=== PATIENT | male | born 1985 | race Caucasian/White ===

== ENCOUNTER 2022-03-02 19:32 | Inpatient (IN) | payer MEDICAID, SELFPAY ==
[2022-03-02 19:35] VITALS: BP 106/60; PULSE 71; RESP 16; TEMP 36.6; O2SAT 100; BMI 22.2
[2022-03-02 19:37] VITALS: BP 106/60; PULSE 71; RESP 16; TEMP 36.6; O2SAT 100
--- NOTE | 2022-03-02 20:57 | EX.ED.SAOD ---
HPI History of Present Illness Chief Complaint: Substance Abuse Detail of Chief Complaint: History of drug abuse requesting inpatient detox. 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 Requesting detox. Last detox was about 6 months ago. He denies any recent illness. Prior similar symptoms: Yes Recent Illness/Hospitalization: No PFSH PFSH Medical History no medical history Home Medications mirtazapine 45 mg tablet 50 mg PO QHS 03/02/22 [History Last Taken Unknown] quetiapine 200 mg tablet (Seroquel) 200 mg PO QHS 03/02/22 [History Last Taken Unknown] Allergy/AdvReac Type Severity Reaction Status Date / Time No Known Allergies Allergy Verified 03/02/22 19:37 Surgical History no surgical history Social History Smoking Status: Current every day smoker tobacco type: cigarettes ROS ROS ED ROS Narrative Denies recent illness. Review of Systems ROS Unobtainable: Denies due to encephalopathy Constitutional Constitutional ED: Denies chills or fever(s) Eyes Eyes: Denies blurry vision ENT ENT ED: Denies ear pain Cardiovascular Cardiovascular: Denies chest pain Respiratory/Chest Respiratory/Chest: Denies cough or dyspnea Gastrointestinal Gastrointestinal: Denies abdominal pain Genitourinary Genitourinary ED: Denies dysuria Musculoskeletal Musculoskeletal: Denies arthralgias Integumentary Denies abscess Neurologic Neurologic: Denies headache(s) Psychiatric Psychiatric: Denies anxiety Endocrine Endocrinology: Denies cold intolerance Hematologic/Lymphatic Hematologic/Lymphatic: Denies easy bleeding Allergic/Immunologic Allergic/Immunologic ED: Denies mouth swelling or tongue swelling EXAM Physical Exam Narrative Exam Narrative: 36-year-old male no acute distress. Vital signs stable afebrile. H EENT exam unremarkable. Atraumatic. Neck nontender no lymphadenopathy. Lungs clear to auscultation bilaterally. Heart regular rate and rhythm rate about 70 no murmur. Chest wall nontender. Abdomen soft nontender. Moving all [address] extremities[address] Track hernandez left antecubital. Not infected. Full range of motion. Nontender. No edema. Back nontender. Neurologically is awake and alert with no focal motor deficits. Const Vital Signs: 03/02/22 19:35 03/02/22 19:37 Temperature 97.9 F 97.9 F Temperature Source Temporal Temporal Pulse Rate 71 71 Respiratory Rate 16 16 Blood Pressure 106/60 106/60 Blood Pressure Mean 75 75 Pulse Ox 100 100 Oxygen Delivery Method Room Air Room Air Positive well nourished and well developed; Negative for obese, cachectic, contractures or unkempt General Appearance ED: well developed and NAD; Negative for unkempt, cachectic, contractures or pallor Nutritional Appearance: Negative for cachectic or obese HEENT Reports moist mucous membranes; Denies dry mucous membranes atraumatic; Negative for trauma or tenderness Mouth ED: No dry mucous membranes Mouth: No dry mucous membranes Eyes PERRL and EOMs intact bilaterally General Eye ED: Negative for pale conjunctiva or scleral icterus Neck no lymphadenopathy, supple and no JVD Thyroid: Negative for tender Lymph Lymphatic: no lymphadenopathy noted; Negative for lymphadenopathy Chest Wall inspection of chest normal and palpation of chest normal Chest: Negative for other Resp normal respiratory effort and clear to auscultation bilaterally Effort and Inspection: Negative for retractions Auscultation: Negative for rales, rhonchi or wheezes Cardio regular rate, regular rhythm, S1 normal heart sound, S2 normal heart sound and no murmurs Rate: Negative for bradycardia or tachycardic Rhythm: Negative for abnormal rhythm GI soft to palpation, non-tender, non-distended and no masses Inspection: Negative for abdominal distention Auscultation: Negative for hyperactive bowel sounds Palpation: Negative for tender or guarding Back/Spine no CVA tenderness General Back: Negative for CVA tenderness Cervical Spine: Negative for cervical spine tenderness and Negative for other Thoracic Spine / Upper Back: Negative for thoracic spinal tenderness Lumbar Spine / Lower Back: Negative for lumbar spinal tenderness Extremity Extremity Narrative: Track hernandez left and acute. Not affected. General Extremety ED: Negative for edema or tenderness General Extremity: Negative for edema Neuro oriented x3 and CN's II-XII intact bilaterally Sensorium / Orientation: alert, oriented to person, oriented to place and oriented to time; Negative for confused, lethargic or stuporous Speech: speech normal Motor Exam: strength 5/5 throughout Psych mental status grossly normal and thought process normal Appearance: Negative for unkempt Attitude: No belligerent, No agitated, No aggressive and No hostile Mood & Affect: Negative for depressed, anxious or tearful Skin General Skin Exam: Negative for jaundice or pallor Lesions: no lesions Rashes: no rashes Trauma: Negative for abrasion MDM MDM MDM Narrative Medical decision making narrative: 36-year-old male history of IV fentanyl and Xanax abuse by snorting. Requesting detox. Medically cleared. I spoke to the hospitalist Dr. Garcia he will be admitted to his service for detox. Discharge Plan Triage Chief Complaint: Substance Abuse ED Provider: Lewis Jeronimo Dx/Rx/DC Orders Clinical Impression: Opiate abuse, continuous, Admitted to substance misuse detoxification center Primary Care Provider: Care Physician,No Primary Referrals: Care Physician,No Primary [Primary Care Provider] - Disposition Disposition: Acute Care Hospital [facility]
[2022-03-02 21:04] VITALS: BP 132/78; PULSE 71; RESP 18; TEMP 36.6; O2SAT 99
--- NOTE | 2022-03-02 22:35 | DCSUM.NURSER ---
Providers Date of Admission: 03/02/22 Primary Care Physician: Livia Primary Care Phys Reason For Visit: DETOX FROM [facility] History/Labs/Procedures History/Labs/Procedures: Temp Pulse Resp BP Pulse Ox O2 Del Method 97.8 F 71 18 132/78 H 99 Room Air 03/02/22 21:04 03/02/22 21:04 03/02/22 21:04 03/02/22 21:04 03/02/22 21:04 03/02/22 21:04 Weight: 155 lb 1.6 oz Medications at Discharge Home Medications mirtazapine 45 mg tablet 50 mg PO QHS 03/02/22 quetiapine 200 mg tablet (Seroquel) 200 mg PO QHS 03/02/22 General Weight: 155 lb 1.6 oz Discharge Plan Admission Admit Date/Time: 03/02/22 21:35 Attending Provider: Joe Garcia Primary Care Provider: Care Physician,No Primary Discharge Orders/Prescriptions Prescriptions: No Action quetiapine [Seroquel] 200 mg Tablet 200 mg PO QHS mirtazapine [Remeron] 45 mg Tablet 50 mg PO QHS Referrals / Follow Up: Care Physician,No Primary [Primary Care Provider] -
--- NOTE | 2022-03-02 22:35 | PCM.HP.STD ---
HPI - General General Date of Admission: 03/02/22 Date of Service: 03/02/22 Chief Complaint: Fentanyl and Xanax abuse HPI Narrative ANGEL VILLATORO, is a 36 M who presents to the emergency room requesting detoxification from fentanyl abuse and Xanax abuse. Patient states he went through detoxification 6 months ago but has been an addict for over 15 years. He states he did have a period of time where he was clean for 2-1/2 years. He states he and his have gotten to the breaking point and are tired of it and want to be well. In the last 2 days he has had 2 bottles of Gatorade to drink only and very little to no food. He states he had a period where he passed out earlier today. He denies chest pain, shortness of breath, fevers or chills. He will be admitted overnight for detoxification and mental health case manager consulted for [facility] Medical History no medical history Home Medications mirtazapine 45 mg tablet 50 mg PO QHS 03/02/22 [History Last Taken Unknown] quetiapine 200 mg tablet (Seroquel) 200 mg PO QHS 03/02/22 [History Last Taken Unknown] Allergy/AdvReac Type Severity Reaction Status Date / Time No Known Allergies Allergy Verified 03/02/22 19:37 Surgical History no surgical history Social History Smoking Status: Current every day smoker tobacco type: cigarettes ROS Constitutional Constitutional: Reports anorexia; Denies chills, fatigue or fever(s) Eyes Eyes: Denies blurry vision ENT HEENT: Denies abnormal hearing Cardiovascular Cardiovascular: Denies chest pain Respiratory/Chest Respiratory/Chest: Reports cough Gastrointestinal Gastrointestinal: Denies abdominal pain or diarrhea Genitourinary Genitourinary: Denies dysuria Musculoskeletal Musculoskeletal: Reports back pain Neurologic Neurologic: Denies abnormal gait Psychiatric Psychiatric: Reports anxiety Vital Signs Vital Signs Vital Signs: 03/02/22 19:35 03/02/22 19:37 03/02/22 21:04 Temperature 97.9 F 97.9 F 97.8 F Temperature Source Temporal Temporal Temporal Pulse Rate 71 71 71 Respiratory Rate 16 16 18 Blood Pressure 106/60 106/60 132/78 H Blood Pressure Mean 75 75 96 Pulse Ox 100 100 99 Oxygen Delivery Method Room Air Room Air Room Air Weight Weight: 155 lb 1.6 oz Body Mass Index (BMI) 22.2 Physical Exam Const oriented x3 General Appearance: cooperative HEENT normocephalic and head/scalp atraumatic Eyes PERRL and EOMs intact bilaterally Neck no lymphadenopathy Lymph Lymphatic: no lymphadenopathy noted Resp normal respiratory effort, normal air movement and clear to auscultation bilaterally Cardio regular rate, regular rhythm, S1 normal heart sound and S2 normal heart sound GI normal to inspection, nondistended, normoactive bowel sounds Extremity normal capillary refill Skin General Skin Exam: no breakdown Neuro no focal motor deficits and no sensory deficits noted Assessment & Plan Assessment/Plan (1) Opiate abuse, continuous: (2) Admitted to substance misuse detoxification center: PLAN: Plan 1 Fentanyl and Xanax abuse?admit patient to general medical floor initiate opiate and benzodiazepine withdrawal protocol, consult case management for outpatient follow-up care 2. DVT prophylaxis?patient is ambulatory and not necessary at this time Charges/Coding Visit Charges Inpatient E&M: 33209 Init Hosp L3
[2022-03-02 23:00] VITALS: BP 126/78; PULSE 78; RESP 16; TEMP 36.6; O2SAT 99
[2022-03-03] VITALS (7 sets, daily range): BP systolic 125–149; BP diastolic 78–98; PULSE 54–75; RESP 16–18; TEMP 36.6–37.1; O2SAT 100–700; BMI 21.2
[2022-03-03] MEDS: QUEtiapine 100 MG Tablet 200 MG PO ×2 (00:40→21:52)
[2022-03-03] MEDS: Phenobarbital 32.4 MG Tablet 64.8 MG PO ×6 (00:40→20:44)
[2022-03-03] MEDS: Gabapentin 300 MG Capsule PO ×2 (08:06→16:26)
[2022-03-03] MEDS: Folic Acid 1 MG Tablet PO (08:06)
[2022-03-03] MEDS: Methocarbamol 750 MG Tablet 1500 MG PO ×2 (08:06→14:51)
[2022-03-03] MEDS: Thiamine Hydrochloride 100 MG Tablet PO (08:06)
[2022-03-03] MEDS: Ensure Plus High Protein 120 ML LIQUID PO ×4 (10:03→21:54)
[2022-03-03] MEDS: Buprenorphine HCl 2 MG TAB.SUBL SL ×2 (10:03→19:25)
--- NOTE | 2022-03-03 10:38 | PN.HOSP_ITS ---
Subjective Subjective Follow-up for substance use disorder. Objective Data Objective Data Vital Signs: Vital Signs Temp Pulse Resp BP Pulse Ox O2 Del Method 98.2 F 56 L 18 134/91 H 100 Room Air 03/03/22 08:01 03/03/22 08:16 03/03/22 08:01 03/03/22 08:01 03/03/22 08:01 03/03/22 08:16 Oxygen Delivery Method Room Air Weight: 148 lb 5.938 oz Body Mass Index (BMI) 21.2 Intake & Output: Intake and Output for Last 24 Hours 03/01/22 03/02/22 03/03/22 23:59 23:59 23:59 Intake Total 500 / 500 Balance 500 / 500 Physical Exam Narrative Patient denies hallucination, delusion or suicidal ideation. He feels well rested. History of chronic hepatitis C. Uses IV needles for fentanyl and takes Xanax 6 mg daily. Physical exam General: Alert, Oriented x3, Cooperative HEENT: Atraumatic, PERRLA, EOMI, Normocephalic Oral: No Gingival or Mucosal Lesions/ Ulcerations Neck: Supple, No JVD, Negative Carotid Bruits Lungs: Air entry diminished in bilateral lung bases. No crepitation/rhonchi Cardiovascular: Regular rate, Regular Rhythm, Normal S1, Normal S2, No murmurs Abdomen: Bowel Sounds Present, Soft, Non Tender, Non-Distended : No renal angle tenderness. No suprapubic tenderness. Extremities: No edema, Capillary Refill Less than 3 Seconds Skin: No rashes, No breakdown Musculoskeletal: No Tenderness to Palpation of Joints or Extremities Neurological: Cranial nerves II-XII grossly intact, DTR 2+/4 and Symmetrical, Neuro grossly intact Psych/Mental Status: Flat affect. Assessment & Plan Assessment/Plan (1) Opiate abuse, continuous: (2) Admitted to substance misuse detoxification center: PLAN: Plan This 36-year-old questionings woman is being admitted for chronic use of fentanyl and Xanax. He has been taking for more than 15 years. He states he takes 6 mg of Xanax bar and injects about 2 g of fentanyl IV. 1. Acute opioid withdrawal syndrome with history of chronic opioid use: Patient is on buprenorphine as per opioid withdrawal protocol along with other supportive medications. Patient is advised to stay. Earlier he said that he will sign AMA to the nurse. 180 senior safety support manager consulted. 2. Acute benzodiazepine withdrawal syndrome with chronic benzodiazepine use disorder, dependence: Patient on phenobarbital based other supportive medication for acute withdrawal stabilization. 3. Chronic hepatitis C: Patient stated he has never been treated. Advised outpatient follow-up. Denies stigmata of chronic liver disease. 2. DVT prophylaxis?patient is ambulatory and not necessary at this time Charges/Coding Visit Charges Inpatient E&M: 26995 Subs Hosp L2
--- NOTE | 2022-03-03 11:56 | ADDICTION ---
This junior copywriter met with PT to conduct ASAM, MSE, AUDIT, DUDIT assessments and to plan for d/c. PT A+Ox4 and participated actively. All assessments completed and placed in PT's chart. PT plans to f/u with [facility] for recovery services. They will provide transportation post d/c from [facility].
[2022-03-03] MEDS: hydrOXYzine PAM 25 MG Capsule 50 MG PO (14:50)
--- NOTE | 2022-03-03 16:02 | CASEMGMT ---
Social Work SW overheard pt discussing leaving AMA. Pt experiencing high level of anxiety due to concern that pt , who is also [facility] pt had left [facility] program and [facility]. SW spoke to pt and validated pt concern. Offered support and education on intervention to manage anxiety. Pt was receptive to interventions and cooperated. Pt spent some time speaking with SW, sharing pt story. SW encouraged pt to remain at [facility] to continue detox. Pt shared high worry about as has overdosed before and has not friends or family to help support. Pt reviewed pt board at receptionist clerk desk and observed that name not listed. This is pt concern that has left [facility]. SW explained to pt that could be on another floor. Pt voiced understanding. After some further discussion regarding want to change pt decided to remain at [facility] in [facility] program and complete detox. Mary Lou Edmonds, JOSH
[2022-03-03] MEDS: traZODone 100 MG Tablet PO (21:53)
[2022-03-04] MEDS: Phenobarbital 32.4 MG Tablet 64.8 MG PO ×6 (00:49→20:35)
[2022-03-04 02:00] VITALS: BP 118/76; PULSE 54; RESP 14; TEMP 36.4; O2SAT 99
[2022-03-04] MEDS: Buprenorphine HCl 2 MG TAB.SUBL SL ×3 (02:08→17:49)
[2022-03-04 08:44] VITALS: BP 124/75; PULSE 60; RESP 18; TEMP 36.3; O2SAT 99
[2022-03-04] MEDS: Folic Acid 1 MG Tablet PO (08:48)
[2022-03-04] MEDS: Ensure Plus High Protein 120 ML LIQUID PO ×3 (08:48→21:52)
[2022-03-04] MEDS: Thiamine Hydrochloride 100 MG Tablet PO (08:48)
[2022-03-04] MEDS: Methocarbamol 750 MG Tablet 1500 MG PO (10:27)
[2022-03-04 14:21] VITALS: BP 128/77; PULSE 76; RESP 16; TEMP 36.9; O2SAT 100
--- NOTE | 2022-03-04 19:54 | PCM.PN.HOSP ---
Subjective Subjective Follow-up for acute opioid and benzodiazepine withdrawal. Objective Data Objective Data Vital Signs: Vital Signs Temp Pulse Resp BP Pulse Ox O2 Del Method 98.4 F 76 16 128/77 H 100 Room Air 03/04/22 14:21 03/04/22 14:21 03/04/22 14:21 03/04/22 14:21 03/04/22 14:21 03/04/22 14:21 Oxygen Delivery Method Room Air Weight: 148 lb 5.938 oz Body Mass Index (BMI) 21.2 Intake & Output: Intake and Output for Last 24 Hours 03/02/22 03/03/22 03/04/22 23:59 23:59 23:59 Intake Total 2550 / 2550 Balance 2550 / 2550 Medical Nutrition Assessment Dietitian: Malnutrition Criteria Met Start: 03/03/22 16:26 Freq: Status: Active Protocol: Document 03/03/22 16:26 LO (Rec: 03/03/22 16:26 LO [id number]) Nutrition Malnutrition Evidence of Malnutrition Exists Yes Malnutrition (moderate): Chronic Evidenced By Weight Loss (Severe),Physical Changes (Moderate) Clinical Problem Chronic Disease or Condition Related Malnutrition Etiology moderate related to drug use Signs/Symptoms as evidenced by 51.6lb weight loss (25.8%) in 6-7 months and moderate orbital and clavicle fat/muscle loss. Status Active Problem Recommendation Dietitian Recommendations/Changes Continue Regular diet to optimize oral intakes. Continue EPHP 4x daily with medpass to promote weight maintenance/gain. Physical Exam Narrative No acute symptom change. Patient has improvement in withdrawal symptoms Physical exam General: Alert, Oriented x3, Cooperative HEENT: Atraumatic, PERRLA, EOMI, Normocephalic Oral: No Gingival or Mucosal Lesions/ Ulcerations Neck: Supple, No JVD, Negative Carotid Bruits Lungs: Air entry diminished in bilateral lung bases. No crepitation/rhonchi Cardiovascular: Regular rate, Regular Rhythm, Normal S1, Normal S2, No murmurs Abdomen: Bowel Sounds Present, Soft, Non Tender, Non-Distended : No renal angle tenderness. No suprapubic tenderness. Extremities: No edema, Capillary Refill Less than 3 Seconds Skin: No rashes, No breakdown Musculoskeletal: No Tenderness to Palpation of Joints or Extremities Neurological: Cranial nerves II-XII grossly intact, DTR 2+/4 and Symmetrical, Neuro grossly intact Psych/Mental Status: Flat affect. Assessment & Plan Assessment/Plan (1) Opiate abuse, continuous: (2) Admitted to substance misuse detoxification center: PLAN: Plan This 36-year-old questionings woman is being admitted for chronic use of fentanyl and Xanax. He has been taking for more than 15 years. He states he takes 6 mg of Xanax bar and injects about 2 g of fentanyl IV. 1. Acute opioid withdrawal syndrome with history of chronic opioid use: Patient is on buprenorphine as per opioid withdrawal protocol along with other supportive medications. Patient is advised to stay. Earlier he said that he will sign AMA to the nurse. 180 green house manager consulted. 03/04: Patient denies hallucination, delusion or suicidal ideation. Improvement in withdrawal symptoms. History of chronic hepatitis C. advised outpatient evaluation and management and treatment for hepatitis C 2. Acute benzodiazepine withdrawal syndrome with chronic benzodiazepine use disorder, dependence: Patient on phenobarbital based other supportive medication for acute withdrawal stabilization. 3. Chronic hepatitis C: Patient stated he has never been treated. Advised outpatient follow-up. Denies stigmata of chronic liver disease. 2. DVT prophylaxis?patient is ambulatory and not necessary at this time Charges/Coding Visit Charges Inpatient E&M: 51678 Subs Hosp L2
[2022-03-04 20:15] VITALS: BP 136/74; PULSE 64; RESP 14; TEMP 37.1; O2SAT 100
[2022-03-04] MEDS: traZODone 100 MG Tablet PO (21:52)
[2022-03-04] MEDS: QUEtiapine 100 MG Tablet 200 MG PO (21:52)
[2022-03-05] MEDS: Phenobarbital 32.4 MG Tablet 64.8 MG PO ×3 (00:25→08:31)
[2022-03-05 02:15] VITALS: BP 113/63; PULSE 56; RESP 14; TEMP 36.3; O2SAT 98
[2022-03-05] MEDS: Buprenorphine HCl 2 MG TAB.SUBL SL (02:31)
[2022-03-05] MEDS: Thiamine Hydrochloride 100 MG Tablet PO (08:31)
[2022-03-05] MEDS: Folic Acid 1 MG Tablet PO (08:31)
[2022-03-05] MEDS: Ensure Plus High Protein 120 ML LIQUID PO (08:31)
--- NOTE | 2022-03-05 08:58 | DCINST_ITS ---
Discharge Instructions Diet Discharge Diet: No restrictions Activity Discharge Activity: Return to Normal Activity and May Not Drive Weight Bearing Status: Weight bearing as tolerated Dressing / Incision Call your doctor if you observe: Fever of 101 or Higher, Coldness, Increased Pain, Numbness or Tingling, Change in Color, Inability to urinate, Inability to have a bowel movement, Shortness of breath, Dizziness, Fainting spells, Swelling in the ankles, Chest pain, Prolonged hiccupping, Increased palpitations (irregular heartbeat) and Calf discomfort Follow Up Care Test Results: Test results from this visit will be discussed in further detail at your follow- up appointment, if applicable. Discharge Plan Admission Admit Date/Time: 03/03/22 00:04 Primary Reason for Your Visit: Acute benzodiazepine and opioid withdrawal syndrome Attending Provider: Michael Raman Primary Care Provider: Care PhysicianLivia Primary Consulting Providers: Joe Garcia Instructions Additional Instructions / Restrictions: Follow-up outpatient substance use rehab program as recommended by 180 Discharge Orders/Prescriptions Prescriptions: New thiamine HCl (vitamin B1) [Vitamin B-1] 100 mg Tablet 100 mg PO DAILYCM Qty: 30 0RF folic acid 1 mg Tablet 1 mg PO DAILY@0800 Qty: 30 0RF Continued quetiapine [Seroquel] 200 mg Tablet 200 mg PO QHS mirtazapine 45 mg Tablet 45 mg PO QHS Referrals / Follow Up: Care Physician,No Primary [Primary Care Provider] - Disposition Disposition (needs filled in before D/C Order can be placed): Home, Self Care
--- NOTE | 2022-03-05 09:01 | DS.PCM_ITS ---
Providers Date of Admission: 03/03/22 Date of Discharge: 03/05/22 Primary Care Physician: No Primary Care Phys Reason For Visit: FENTANYL & XANAX ABUSE REQUESTING WITHDRAWL Diagnosis Discharge Diagnosis (1) Opiate abuse, continuous: Status: Acute Code(s): F11.10 - Opioid abuse, uncomplicated (2) Admitted to substance misuse detoxification center: Status: Acute Code(s): Z78.9 - Other specified health status Plan This 36-year-old questionings woman is being admitted for chronic use of fentanyl and Xanax. He has been taking for more than 15 years. He states he takes 6 mg of Xanax bar and injects about 2 g of fentanyl IV. 1. Acute opioid withdrawal syndrome with history of chronic opioid use: Patient is on buprenorphine as per opioid withdrawal protocol along with other supportive medications. Patient is advised to stay. Earlier he said that he will sign AMA to the nurse. [employer] consulted. 03/04: Patient denies hallucination, delusion or suicidal ideation. Improvement in withdrawal symptoms. History of chronic hepatitis C. advised outpatient evaluation and management and treatment for hepatitis C 03/05: Patient did not really hallucination delusion or suicidal ideation or illusion. Discussed with the [employer] manager/RN and said patient and his girlfriend are not motivated to follow-up outpatient rehab because of some jew believes. I strongly advised to follow-up as an outpatient rehab. 2. Acute benzodiazepine withdrawal syndrome with chronic benzodiazepine use disorder, dependence: Patient on phenobarbital based other supportive medication for acute withdrawal stabilization. 3. Chronic hepatitis C: Patient stated he has never been treated. Advised outpatient follow-up. Denies stigmata of chronic liver disease. 2. DVT prophylaxis?patient is ambulatory and not necessary at this time Discharge medication reconciliation done. Discharge follow-up instructions completed. Discharge process discussed with the patient and all questions were answered to patient's satisfaction. Total time spent, exact 35 minutes on discharge meds reconciliation, examination, coordination of care with nurses and ancillary staff, review of imaging and blood test and discussion with the patient on follow-up instructions. Medications at Discharge Home Medications mirtazapine 45 mg tablet 45 mg PO QHS sleep 03/02/22 quetiapine 200 mg tablet (Seroquel) 200 mg PO QHS sleep 03/02/22 folic acid 1 mg tablet 1 mg PO DAILY@0800 #30 tabs 03/05/22 thiamine HCl (vitamin B1) 100 mg tablet (Vitamin B-1) 100 mg PO DAILYCM #30 tabs 03/05/22 Physical Exam Narrative Seen and examined on the day of discharge No acute symptom change. Patient withdrawal symptoms have resolved. Physical exam General: Alert, Oriented x3, Cooperative HEENT: Atraumatic, PERRLA, EOMI, Normocephalic Oral: No Gingival or Mucosal Lesions/ Ulcerations Neck: Supple, No JVD, Negative Carotid Bruits Lungs: Air entry diminished in bilateral lung bases. No crepitation/rhonchi Cardiovascular: Regular rate, Regular Rhythm, Normal S1, Normal S2, No murmurs Abdomen: Bowel Sounds Present, Soft, Non Tender, Non-Distended : No renal angle tenderness. No suprapubic tenderness. Extremities: No edema, Capillary Refill Less than 3 Seconds Skin: No rashes, No breakdown Musculoskeletal: No Tenderness to Palpation of Joints or Extremities Neurological: Cranial nerves II-XII grossly intact, DTR 2+/4 and Symmetrical, Neuro grossly intact Psych/Mental Status: Flat affect. Medical Records Data Medical Nutrition Assessment Dietitian: Malnutrition Criteria Met Start: 03/03/22 16:26 Freq: Status: Active Protocol: Document 03/03/22 16:26 (Rec: 03/03/22 16:26 [id number]) Nutrition Malnutrition Evidence of Malnutrition Exists Yes Malnutrition (moderate): Chronic Evidenced By Weight Loss (Severe),Physical Changes (Moderate) Clinical Problem Chronic Disease or Condition Related Malnutrition Etiology moderate related to drug use Signs/Symptoms as evidenced by 51.6lb weight loss (25.8%) in 6-7 months and moderate orbital and clavicle fat/muscle loss. Status Active Problem Recommendation Dietitian Recommendations/Changes Continue Regular diet to optimize oral intakes. Continue EPHP 4x daily with medpass to promote weight maintenance/gain. Weight / BMI Weight Weight: 148 lb 5.938 oz Body Mass Index (BMI) 21.2 D/C Instructions Discharge Diet: No restrictions Weight Bearing Status: Weight bearing as tolerated Call your doctor if you observe: Fever of 101 or Higher, Coldness, Increased Pain, Numbness or Tingling, Change in Color, Inability to urinate, Inability to have a bowel movement, Shortness of breath, Dizziness, Fainting spells, Swelling in the ankles, Chest pain, Prolonged hiccupping, Increased palpitations (irregular heartbeat) and Calf discomfort Meaningful Use Info Meaningful Use Diagnoses (Choose all that apply): None applicable Discharge Plan Admission Admit Date/Time: 03/03/22 00:04 Primary Reason for Your Visit: Acute benzodiazepine and opioid withdrawal syndrome Attending Provider: Michael Raman Primary Care Provider: Care Physician,No Primary Consulting Providers: Joe Garcia Instructions Additional Instructions / Restrictions: Follow-up outpatient substance use rehab program as recommended by 180 Discharge Orders/Prescriptions Prescriptions: New thiamine HCl (vitamin B1) [Vitamin B-1] 100 mg Tablet 100 mg PO DAILYCM Qty: 30 0RF folic acid 1 mg Tablet 1 mg PO DAILY@0800 Qty: 30 0RF Continued quetiapine [Seroquel] 200 mg Tablet 200 mg PO QHS mirtazapine 45 mg Tablet 45 mg PO QHS Referrals / Follow Up: Care Physician,No Primary [Primary Care Provider] - Disposition Disposition (needs filled in before D/C Order can be placed): Home, Self Care Charges/Coding Visit Charges Inpatient E&M: 10220 Disch Hosp
[2022-03-05 09:58] VITALS: BP 106/59; PULSE 60; RESP 18; TEMP 36.5; O2SAT 98
== END 2022-03-05 14:11 | disposition home or self-care (01) | DRG 772 ==
LOC: ED 21:16 → MS3 03-03 00:12
PROVIDERS: Admitting Provider Family Medicine; Emergency Provider Emergency Medicine; Visit Provider Internal Medicine
DX: F13.230 Sedative, hypnotic or anxiolytic dependence with withdrawal, uncomplicated (principal); E44.0 Moderate protein-calorie malnutrition; B18.2 Chronic viral hepatitis C; F11.13 Opioid abuse with withdrawal; F17.210 Nicotine dependence, cigarettes, uncomplicated; Z68.21 Body mass index [BMI] 21.0-21.9, adult; Z79.899 Other long term (current) drug therapy
CPT/HCPCS: 97802; 99283; 99406